=== PATIENT | female | born 1950 | race Caucasian/White ===

== ENCOUNTER → 2016-09-09 | Outpatient (CLI) | payer OTHER, MEDICARE | LOC: FIMAGING 08:39 | PROVIDERS: ATTEND Anesthesiology Pain Medicine | DX: S73.192A Other sprain of left hip, initial encounter (principal); M48.06 Spinal stenosis, lumbar region; M16.0 Bilateral primary osteoarthritis of hip; M25.451 Effusion, right hip; M76.01 Gluteal tendinitis, right hip; M76.891 Other specified enthesopathies of right lower limb, excluding foot; M46.96 Unspecified inflammatory spondylopathy, lumbar region; M51.36 Other intervertebral disc degeneration, lumbar region; M51.86 Other intervertebral disc disorders, lumbar region ==

== ENCOUNTER → 2016-10-06 | Outpatient (CLI) | payer OTHER, MEDICARE | LOC: FIMAGING 16:07 | PROVIDERS: ATTEND Neurological Surgery | DX: S33.130A Subluxation of L3/L4 lumbar vertebra, initial encounter (principal); S33.140A Subluxation of L4/L5 lumbar vertebra, initial encounter; M51.36 Other intervertebral disc degeneration, lumbar region ==

== ENCOUNTER → 2016-10-28 | Outpatient (CLI) | payer OTHER, MEDICARE | LOC: FIMAGING 08:30 | DX: Z12.31 Encounter for screening mammogram for malignant neoplasm of breast (principal) | CPT/HCPCS: G0202 ==

== ENCOUNTER 2016-12-09 11:30 | Inpatient (IN) | payer OTHER, MEDICARE ==
[2017-02-17] MEDS ORDERED: TRANEXAMIC ACID 3,000 MG in NS 50 ML IRR ONE (06:00)
[2017-02-17] MEDS ORDERED: ROPIVACAINE 0.2% 80 MG, EPINEPHrine 0.2 MG, KETOROLAC TROMETHAMINE 30 MG in BAG 0 ML IU ONE (06:00)
[2017-02-17] MEDS ORDERED: TRANEXAMIC ACID 3,000 MG/50 ML BAG IRR ONE (07:50)
[2017-02-17] MEDS ORDERED: ACETAMINOPHEN 325 MG TAB PO ONE (10:31)
[2017-02-17] MEDS ORDERED: FAMOTIDINE 20 MG TAB PO ONE (10:31)
[2017-02-17] MEDS ORDERED: ceFAZolin 2 GM/DEXTROSE 100 ML IV ONE (10:31)
[2017-02-17] MEDS ORDERED: DEXAMETHASONE 4 MG/ML VIAL IVP ONE (10:31)
[2017-02-17] MEDS ORDERED: LR 1,000 ML IV ONE (10:33)
[2017-02-17] MEDS ORDERED: LIDOCAINE 1% 2 ML INJ ID PRN (10:33)
[2017-02-17] MEDS ORDERED: LIDOCAINE 1% 2 ML INJ ONE (10:50)
[2017-02-17] MEDS ORDERED: ACETAMINOPHEN 325 MG TAB ONE (10:50)
[2017-02-17] MEDS ORDERED: DEXAMETHASONE 4 MG/ML VIAL ONE (10:50)
[2017-02-17] MEDS ORDERED: CEFAZOLIN 2 GM/DEXTROSE/100 ML BAG IV ONE (10:50)
[2017-02-17] MEDS ORDERED: FAMOTIDINE 20 MG TAB ONE (10:50)
--- NOTE | 2017-02-17 11:40 | PDHPUP ---
History & Physical Update H&P update statement: This history and physical update is based on an assessment of the patient which was completed after admission or registration (within 24 hours), but prior to the surgery/procedure. H&P update: H&P reviewed & patient examined, no change in patient's condition since H&P completed
[2017-02-17] MEDS ORDERED: MIDAZOLAM 2 MG/2 ML VIAL IVP ONE (11:49)
--- NOTE | 2017-02-17 11:49 | PDANEPAE ---
ANE History of Present Illness 66 yo F w OA here for R BENJAMIN ANE Past Medical History - Cardiovascular History Hx Hypertension: No Hx Arrhythmias: Yes Hx Chest Pain: No Hx Coronary Artery / Peripheral Vascular Disease: No Hx CHF / Valvular Disease: No Hx Palpitations: No Cardiovascular History Comment: IRREG HEARTBEAT- OCCAS - WORK UP WITH DR LEDEZMA [facility]. 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 dr ledezma started her on metoprolol last week - Pulmonary History Hx COPD: No Hx Asthma/Reactive Airway Disease: No Hx Recent Upper Respiratory Infection: No Hx Oxygen in Use at Home: No Hx Sleep Apnea: Yes Sleep Apnea Screening Result - Last Documented: Positive Pulmonary History Comment: DENIES SOB W STAIRS - Neurologic History Hx Cerebrovascular Accident: No Hx Seizures: No Hx Dementia: No Neurologic History Comment: NEUROPATHY MARGARET FEET. LOW BACK STENOSIS. DDD - Endocrine History Hx Diabetes: No - Renal History Hx Renal Disorders: No - Liver History Hx Hepatic Disorders: No - Neurological & Psychiatric Hx Hx Neurological and Psychiatric Disorders: Yes Neurological / Psychiatric History Comment: ANXIETY, INSOMNIA - Cancer History Hx Cancer: No - Congenital Disorder History Hx Congenital Disorders: No - GI History Hx Gastrointestinal Disorders: Yes Gastrointestinal History Comment: GLUTEN FREE DIET. HEMORRHOID - Other Health History Other Health History: OSTEOPENIA. RHUMATOID ARTHRITIS X 20. OA. DRY EYES - Chronic Pain History Chronic Pain: Yes (BACK, R HIP, GROIN) - Surgical History Prior Surgeries: R TKA. SCOPE R KNEE '11. L SHOULDER '13. WISDOM TEETH. D AND C X2. UTERINE ABLATION ANE Review of Systems - Exercise capacity METS (RN): 4 METS - Systems Muscolosketal: Reports: joint pain (h/o rheumatoid arthritis), joint swelling ANE Patient History - Allergies Allergies/Adverse Reactions: adalimumab [From Humira] Allergy (Severe, Verified 02/15/17 12:27) Rash eszopiclone [From Lunesta] Allergy (Severe, Verified 02/15/17 12:27) Rash hydroxyzine Allergy (Severe, Verified 02/15/17 12:27) Rash leflunomide [From Arava] Allergy (Severe, Verified 02/15/17 12:27) Diarrhea levofloxacin [From Levaquin] Allergy (Severe, Verified 02/15/17 12:27) Rash nabumetone [From Relafen] Allergy (Severe, Verified 02/15/17 12:27) Rash ramelteon [From Rozerem] Allergy (Severe, Verified 02/15/17 12:27) Rash zolpidem tartrate [From Ambien] Allergy (Severe, Verified 02/15/17 12:27) Rash gluten Allergy (Verified 02/15/17 12:27) - Home Medications Home medications: home medication list seen and reviewed Home Medications: Herbals/Supplements -Info Only 1 ea PO DAILY 12/11/13 [Last Taken 02/03/17] LORazepam [Ativan (*)] 0.5 mg PO HS PRN 12/11/13 [Last Taken 02/16/17 23:30] Tretinoin [RETIN-A] 1 tye TP HS 12/11/13 [Last Taken 02/16/17 23:30] cycloSPORINE 0.05% [Restasis Opht Drops(*)] 1 drop EACHEYE BID 12/11/13 [Last Taken 02/17/17 07:00] Cholecalciferol Vit D3 [Vitamin D3 2000 units tab (OTC)] 6,000 units PO DAILY [Last Taken 02/03/17] Estradiol [Estrace Vaginal (*)] 1 tye VG Q3D 12/07/16 [Last Taken 02/03/17] traMADol [Ultram 50 mg (*)] 25 mg PO DAILY PRN 12/07/16 [Last Taken 02/03/17] Metoprolol Succinate 12.5 mg PO DAILY 02/15/17 [Last Taken 02/17/17 07:00] - NPO status NPO Since - Liquids (Date): 02/17/17 NPO Since - Liquids (Time): 07:00 NPO Since - Solids (Date): 02/16/17 NPO Since - Solids (Time): 18:00 - Anes Hx Anes Hx: no prior problems - Smoking Hx Smoking Status: Never smoked - Alcohol Use Alcohol Use: Rarely - Family Anes Hx Family Anes Hx: none Family Hx Anesthesia Complications: NONE ANE Labs/Vital Signs - Vital Signs Blood Pressure: 122/69 Heart Rate: 61 Respiratory Rate: 16 O2 Sat (%): 97 Height: 181.61 cm Weight: 63.503 kg ANE Physical Exam - Airway Neck exam: FROM Mallampati Score: Class 1 Mouth exam: normal dental/mouth exam - Pulmonary Pulmonary: no respiratory distress - Cardiovascular Cardiovascular: regular rate and rhythym - ASA Status ASA Status: III ANE Anesthesia Plan Anesthesia Plan: GA with mask, spinal Total IV Anesthesia: Yes
[2017-02-17] MEDS ORDERED: PROPOFOL/EMULSION 500 MG/50 ML BOTTLE IV ONE (12:25)
[2017-02-17] MEDS ORDERED: ONDANSETRON 4 MG/2 ML VIAL IVP PRN ×2 (13:26→13:57)
[2017-02-17] MEDS ORDERED: HYDROmorphONE/DILAUDID 1 MG/ML SYR IVP PRN (13:26)
[2017-02-17] MEDS ORDERED: NALOXONE HCL 0.4 MG/ML INJ IVP PRN (13:26)
[2017-02-17] MEDS ORDERED: PROPOFOL 200 MG/20 ML VIAL ONE (13:34)
[2017-02-17] MEDS ORDERED: LORazepam 0.5 MG TAB PO PRN (13:56)
--- NOTE | 2017-02-17 13:56 | POSTOPPROG ---
Post Op Note Date of Operation: 02/17/17 Surgeon: [employer] [employer] [facility] Consultant: ethan aburto Anesthesiologist: soco Anesthesia: IV Sedation, Spinal Pre-op Diagnosis: R hip OA Post-op Diagnosis: R hip OA Indication: failed conservative therapies Procedure: R BENJAMIN Inf/Abcess present in the surg proc area at time of surgery?: No EBL: 50-100
[2017-02-17] MEDS ORDERED: PROMETHAZINE HCL 25 MG/ML INJ IVP PRN (13:57)
[2017-02-17] MEDS ORDERED: MAGNESIUM HYDROXIDE 30 ML UDCUP PO PRN (13:57)
[2017-02-17] MEDS ORDERED: DIPHENOXYLATE/ATROPINE LOMOTIL 1 TAB PO PRN (13:57)
[2017-02-17] MEDS ORDERED: diphenhydrAMINE 25 MG CAP PO PRN (13:57)
[2017-02-17] MEDS ORDERED: PROMETHAZINE HCL 25 MG SUPPR PR PRN (13:57)
[2017-02-17] MEDS ORDERED: POLYETHYLENE GLYCOL 3350 17 GM PKT PO PRN (13:57)
[2017-02-17] MEDS ORDERED: CYCLOBENZAPRINE 10 MG TAB PO PRN (13:57)
[2017-02-17] MEDS ORDERED: METOCLOPRAMIDE 10 MG/2 ML VIAL IVP PRN (13:57)
[2017-02-17] MEDS ORDERED: BISACODYL 10 MG SUPP PR PRN (13:57)
[2017-02-17] MEDS ORDERED: LACTULOSE 20 GM/30 ML UDCUP PO PRN (13:57)
[2017-02-17] MEDS ORDERED: ONDANSETRON DISINTEGRATING 4 MG TAB PO PRN (13:57)
[2017-02-17] MEDS ORDERED: TEMAZEPAM 15 MG CAP PO PRN (13:57)
[2017-02-17] MEDS ORDERED: LR 1,000 ML IV SCH (14:00)
[2017-02-17] MEDS ORDERED: ONDANSETRON 4 MG/2 ML VIAL ONE (14:21)
--- NOTE | 2017-02-17 16:36 | POSTANESTH ---
Post Anesthetic Evaluation Cardiovascular Status: Normal, Stable, Similar to Pre-Op Cond Respiratory Status: Normal, Stable, Similar to Pre-op Cond. Level of Consciousness/Mental Status: Can Participate in Eval, Alert and Oriented Pain Control: Adequate, Prn Tx Ordered Nausea/Vomiting Control: Adequate, Prn Tx Ordered Complications Possibly Related to Anesthesia: None Noted
[2017-02-17] MEDS: ACETAMINOPHEN 325 MG TAB PO SCH ×2 (17:16→23:33)
[2017-02-17] MEDS: ASPIRIN 325 MG TAB PO SCH (21:02)
[2017-02-17] MEDS: SENNOSIDES/DOCUSATE SODIUM TAB PO SCH (21:02)
[2017-02-17] MEDS: ceFAZolin 2 GM/DEXTROSE 100 ML IV SCH (21:03)
[2017-02-17] MEDS: oxyCODONE IR 5 MG TAB PO PRN ×2 (21:03→22:20)
[2017-02-17] MEDS: FAMOTIDINE 20 MG TAB PO SCH (21:09)
[2017-02-17] MEDS: CYCLOSPORINE 0.05% 1 EACH BOX EACHEYE SCH (21:09)
[2017-02-18] MEDS: ceFAZolin 2 GM/DEXTROSE 100 ML IV SCH (05:03)
[2017-02-18] MEDS: ACETAMINOPHEN 325 MG TAB PO SCH ×2 (05:04→13:56)
[2017-02-18 05:19] LABS: HEMATOCRIT 29.3 % (38.0-47.0); HEMOGLOBIN 10.1 g/dL (12.6-16.3)
[2017-02-18 05:25] VITALS: TEMP 98.4
[2017-02-18 07:20] VITALS: BP 104/61; PULSE 58; RESP 18; O2SAT 95
--- NOTE | 2017-02-18 08:25 | SOAPPROG ---
SOAP Progress Note Assessment/Plan: Assessment: Patient is doing well POD 1 s/p R BENJAMIN Pain management: pain is well controlled on oral pain meds. VTE ppx: recommend aspirin daily for 3 weeks, cont MABEL and SCDs Anemia: level is expected initially postop. Asymptomatic. Continue to monitor D/c planning: d/c to home today pending release from PT Plan: 02/18/17 08:24 Objective: Vital Signs Temp Pulse Resp BP Pulse Ox 36.9 C 58 L 18 104/61 95 02/18/17 07:17 02/18/17 07:17 02/18/17 07:17 02/18/17 07:17 02/18/17 07:17 Laboratory Results 02/18/17 04:51 02/17/17 02/18/17 02/19/17 05:59 05:59 05:59 Intake Total 2260 Output Total 2550 350 Balance -290 -350 ICD10 Worksheet Patient Problems: Problems Problem Status Onset Osteoarthritis of knee Acute
[2017-02-18] MEDS: SENNOSIDES/DOCUSATE SODIUM TAB PO SCH (09:01)
[2017-02-18] MEDS: ASPIRIN 325 MG TAB PO SCH (09:01)
[2017-02-18] MEDS: FAMOTIDINE 20 MG TAB PO SCH (09:01)
--- NOTE | 2017-02-18 11:15 | GOP ---
[f rep st] OPERATIVE REPORT DATE OF OPERATION: 02/17/2017 SURGEON: Jimmy Callahan MD AWNING FINISHER: JOSH Levy. ANESTHESIA: Spinal. PREOPERATIVE DIAGNOSIS: Right hip osteoarthritis. POSTOPERATIVE DIAGNOSIS: Right hip osteoarthritis. PROCEDURE PERFORMED: Right total hip arthroplasty. FINDINGS: ESTIMATED BLOOD LOSS: 200 mL IMPLANTS: Accolade II, size 6 at 127. Acetabular component is a 56 mm Tritanium. The liner is a Trident X3, 36 mm. The head is a Biolox Delta 36 mm -2.5. INDICATIONS: The patient has progressively worsening arthritis of the hip which has failed medical management. The patient understands the treatment options including continued non-operative care and has selected surgical intervention. The patient has decided to undergo total hip arthroplasty via the direct anterior approach, understanding the risks of the procedure including, but not limited to, neurovascular injury, infection, persistent pain, component wear and loosening, deep venous thrombosis, pulmonary embolism, limb length inequality, hip instability (including dislocation), and intra-operative fractures. DESCRIPTION OF PROCEDURE: After proper identification of the patient including verification and marking the surgical site, the patient was brought to the operating room and placed in the supine position. All bony prominences were well padded. Anesthesia was induced without complication and intravenous prophylactic antibiotics were administered prior to skin incision. The operative leg was placed in the Trumpf Arch table extension and the well leg in a Yellowfin leg kim. The patient was prepped and draped in the usual sterile fashion. The C-arm was draped for intra-operative fluoroscopy to check acetabular position, femoral component position including leg length and femoral offset. Attention was then drawn to surgical exposure of the hip. An incision was made with a #10 Bard Adrián blade starting 3 cm lateral and 3 cm distal to the anterior superior iliac spine measuring 8-10 cm and coursing distally toward the greater trochanter. The skin and subcutaneous tissues were divided sharply down to the fascia tom. The fascia tom was incised in line with the skin incision exposing the underlying tensor fascia tom muscle. The muscle was bluntly elevated from the fascia and the first extracapsular Cobra retractor was placed laterally at the junction of the superior femoral neck and greater trochanter. The lateral femoral circumflex vessels were identified, cauterized, and divided with the Aquamantys bipolar cautery. The deep investing fascia of the TFL was divided to allow proper mobilization of the muscle preventing damage during the retraction. The reflected head of the rectus femoris muscle was elevated off the anterior hip capsule and a medial Cobra retractor was placed just proximal to the lesser trochanter. The anterior capsulotomy was made sharply from the superolateral acetabulum to the saddle junction of the superior femoral neck and greater trochanter, then coursing inferomedial towards the lesser trochanter. The retractors were then placed in the intracapsular position for femoral neck osteotomy. Corresponding to pre-operative templating, the osteotomy was made with the oscillating saw carefully protecting the greater trochanter and soft tissues. The femoral head was removed from the acetabulum with a corkscrew and confirmed to be severely arthritic with exposed bone, deformity and osteophytes. Similar findings were confirmed in the acetabulum. The Arch table extension was then placed in 40 degrees external rotation. Attention was then drawn to the acetabular preparation. After placement of the anterior and posterior Cobra retractors outside the labrum and intracapsular, the circumferential labrum was removed sharply. The foveal contents were then removed and hemostasis obtained with cautery. The first reamer selected was sized using the removed femoral head. Reaming began with medialization and then commenced in 2 mm increments at 45 degrees of abduction and 15 degrees of anteversion using fluoroscopic navigation. Reaming ceased 1 mm less than the definitive acetabular component and corresponded to the pre-operative templating. The final acetabular component was inserted using fluoroscopy to achieve proper orientation yielding excellent purchase and stability in the acetabulum. The final acetabular liner was then placed and its seating confirmed. Attention was then turned to the femur. The Arch table extension was placed in extension and adduction, delivering the osteotomized femoral neck into the wound. A 2-pronged femoral elevator was placed at the calcar and another at the tip of the greater trochanter. The posterolateral capsule was released with cautery allowing mobilization of the femur lateral and anterior for preparation. The external rotators were visualized and preserved. A curette and rongeur were used to open the starting point for broaching. Serial broaching started with the #0 broach and ended with the broach that exhibited excellent fit in the proximal femur. A change in pitch during mallet strikes was accompanied by the inability to advance the broach any further. The trial reduction was performed and fluoroscopic navigation was utilized to check limb length. Adjustments were made to equalize limb length accordingly. After the final trials were accepted they were removed and the wound was copiously lavaged. The femoral component was seated to the same depth as the final broach and the femoral head was impacted onto the clean trunion. The hip was then reduced for the final time and once more fluoroscopy was used to check that limb length equality was achieved. The wound was irrigated and closed in layers, the fascia tom with 2-0 Quill, the subcutaneous tissue with 2-0 Quill, and the skin with Dermabond. Sterile dressings were applied. Final sharps and sponge counts were accurate. The patient was then transferred to a hospital bed and brought to the recovery room in stable condition. /[id number]/MODL MTDD
[2017-02-18] MEDS: oxyCODONE IR 5 MG TAB PO PRN (13:56)
[2017-02-18] MEDS: CYCLOSPORINE 0.05% 1 EACH BOX EACHEYE SCH (14:34)
--- NOTE | 2017-02-22 03:37 | GDS ---
[f rep st] DISCHARGE SUMMARY ADMISSION DIAGNOSIS: Right hip osteoarthritis. DISCHARGE DIAGNOSIS: Right hip osteoarthritis. PROCEDURE: Right total hip arthroplasty. VTE PROPHYLAXIS: Full-strength aspirin x21 days. BRIEF DESCRIPTION OF HOSPITAL STAY: Patient was admitted for an elective joint arthroplasty. The p atient tolerated the procedure well and has passed physical therapy. The patient was given appropri ate antibiotic prophylaxis and venous thromboembolism prophylaxis. The patient's pain was well cont rolled on oral pain medication, patient was holding down food, and had urinated. Decision was made to discharge the patient. The patient was given post-operative prescriptions pre-operatively. PLAN: Please follow up with Dr. Callahan as scheduled in 3 weeks. /[id number]/MODL
== END 2017-02-18 14:07 | disposition home or self-care (01) | DRG 470 ==
LOC: F3E 02-17 10:05 → F3N 02-17 14:55
PROVIDERS: ADMIT Orthopaedic Surgery; ATTEND Orthopaedic Surgery
PROC: 0SR904A Replacement of Right Hip Joint with Ceramic on Polyethylene Synthetic Substitute, Uncemented, Open Approach (ICD-10-PCS; principal; 2017-02-17 12:15)
DX: M16.11 Unilateral primary osteoarthritis, right hip (principal); I49.3 Ventricular premature depolarization; M51.87 Other intervertebral disc disorders, lumbosacral region; G60.9 Hereditary and idiopathic neuropathy, unspecified; M06.9 Rheumatoid arthritis, unspecified; I42.9 Cardiomyopathy, unspecified
CPT/HCPCS: 97116-GP; 97161-GP; 97165-GO; 97530-GP; G8978-GP-CI; G8979-GP-CI; G8980-GP-CI; G8987-GO-CI; G8988-GO-CI; G8989-GO-CI; J0171; J0690; J1100; J1885; J2250; J2405; J2704; J2795

== ENCOUNTER 2017-02-11 13:06 | Day surgery (SDC) | payer OTHER, MEDICARE ==
[2017-02-11] MEDS ORDERED: ASPIRIN EC 325 MG TAB PO ONE ×2 (13:13→13:36)
[2017-02-11] MEDS ORDERED: diphenhydrAMINE 25 MG CAP PO ONE ×2 (13:13→13:36)
[2017-02-11] MEDS ORDERED: FAMOTIDINE 20 MG TAB PO ONE (13:13)
[2017-02-11] MEDS ORDERED: NS 1,000 ML IV ONE (13:13)
[2017-02-11] MEDS ORDERED: DIAZEPAM 5 MG TAB PO ONE (13:13)
[2017-02-11] MEDS ORDERED: DIAZEPAM 5 MG TAB ONE (13:36)
[2017-02-11] MEDS ORDERED: FAMOTIDINE 20 MG TAB ONE (13:36)
--- NOTE | 2017-02-11 13:51 | CPEKG ---
Heart Rate: 100 RR Interval: 600 P-R Interval: 180 QRSD Interval: 74 QT Interval: 384 QTC Interval: 496 P Sigourney: 81 QRS Sigourney: 83 T Wave Sigourney: 35 EKG Severity - ABNORMAL ECG - EKG Impression: SINUS TACHYCARDIA EKG Impression: VENTRICULAR BIGEMINY EKG Impression: PROBABLE LEFT ATRIAL ABNORMALITY EKG Impression: BORDERLINE RIGHT AXIS DEVIATION EKG Impression: CONSIDER ANTEROSEPTAL INFARCT Electronically Signed By: Satish Cardenas 11-Feb-2017 14:14:51
[2017-02-11 14:02] LABS: ADD DIFF? NO; ADD MORPH? NO; ADD SCAN? NO; ATYPICAL LYMPHOCYTE FLAG 70 (0-99); FRAGMENT RBC FLAG 0 (0-99); HEMATOCRIT 37.9 % (38.0-47.0); HEMOGLOBIN 13.1 g/dL (12.6-16.3); LEFT SHIFT FLG 0 (0-99); LIPEMIA HEMOLYSIS FLAG 90 (0-99); MEAN CELL HEMOGLOBIN 30.4 pg (27.9-34.1); MEAN CELL HEMOGLOBIN CONCENTR. 34.6 g/dL (32.4-36.7); MEAN CELL VOLUME 87.9 fL (81.5-99.8); PLATELET CLUMPS FLAG 10 (0-99); PLATELET COUNT 173 10^3/uL (150-400); RED BLOOD CELL COUNT 4.31 10^6/uL (4.18-5.33); RED CELL DISTRIBUTION WIDTH 12.8 % (11.5-15.2)
[2017-02-11 14:16] LABS: INR 1.11 (0.83-1.16); PROTIME(PATIENT) 14.2 SEC (12.0-15.0)
[2017-02-11 14:18] LABS: ANION GAP 10 mEq/L (8-16); CALCIUM 9.6 mg/dL (8.5-10.4); CARBON DIOXIDE 20 mEq/l (22-31); CHLORIDE 106 mEq/L (97-110); CHOLESTEROL 202 mg/dL (140-220); CHOLESTEROL/HDL RATIO 2.56 RATIO (1.00-4.44); CREATININE 0.8 mg/dL (0.6-1.0); GLOMERULAR FILTRATION RATE > 60; GLUCOSE 85 mg/dL (70-100); HIGH DENSITY LIPOPROTEIN 79 mg/dL (40-85); LDL/HDL RATIO 1.41 RATIO (1.00-3.22); LOW DENSITY LIPOPROTEIN 111 mg/dL (80-100); MAGNESIUM 1.9 mg/dL (1.6-2.3); NON-HIGH DENSITY LIPOPROTEIN 123 mg/dL (90-129); POTASSIUM 4.3 mEq/L (3.5-5.2); SODIUM 136 mEq/L (134-144); TRIGLYCERIDE 63 mg/dL (35-135); VERY LOW DENSITY LIPOPROTEINS 12 mg/dL (8-25)
[2017-02-11] MEDS ORDERED: LIDOCAINE 1% 300 MG/30 ML SDV ONE (14:46)
[2017-02-11] MEDS ORDERED: HEPARIN 10,000 UNIT/10 ML MDV ONE (14:46)
[2017-02-11] MEDS ORDERED: VERAPAMIL 5 MG/2 ML VIAL ONE (14:47)
[2017-02-11] MEDS ORDERED: IOPAMIDOL (ISOVUE-370) 150 ML BTL IV ONE (14:47)
[2017-02-11] MEDS ORDERED: MIDAZOLAM 2 MG/2 ML VIAL ONE (14:57)
[2017-02-11] MEDS ORDERED: fentaNYL 100 MCG/2 ML INJ ONE (14:57)
--- NOTE | 2017-02-11 16:20 | PDDXCAT ---
Diagnostic Cath Note - . Date: 02/11/17 Monkey Keeper: Yemi Indication: other (Frequent PVCs including short bursts of nonsustained VT, abnormal nuclear stress test, progressive exercise intolerance, and preoperative cardiac risk assessment for a planned hip replacement.) - Procedure Access: right wrist Procedure: left heart catheterization, coronary angiography, left ventriculogram - Materials Left Heart Cath size: 4F Left Heart Cath materials: standard multipack (JL4, JR4, pigtail) - Findings-Left Heart Catheterization LM: Angiographically normal. LAD: Angiographically normal. LCX: Angiographically normal. RCA: Angiographically normal. EDP: 11 mmHg LVEF: 45% Wall motion: Mild global hypokinesis. Complications: None Estimated blood loss: <50ml Closure method: TR Band Assessment: 1) Nonischemic cardiomyopathy with mildly reduced LV systolic function. 2) Angiographically normal coronary arteries. Plan: [facility] months ago the patient had a Holter monitor at [facility] that was reported to show PVCs and short bursts of nonsustained ventricular tachycardia. A 4% burden of PVCs was mentioned which would equate to approximately 4000 PVCs per day. Today, she was in ventricular bigeminy with occasional bursts of nonsustained VT during the entire time I was talking to her about the catheterization procedure. If she is having sustained episodes of bigeminy she could potentially be having as much/or more than 20-30,000 PVCs per day. This could also explain her mildly reduced left ventricular systolic function and worsening exercise capacity. I will speak with her usual child care worker, Dr. Roque Pena, about potentially placing her on low-dose loree therapy to suppress these. Patient Problems: Problems Problem Status Onset Osteoarthritis of knee Acute
== END 2017-02-11 19:15 | disposition home or self-care (01) ==
LOC: FCATH 13:06
PROVIDERS: ATTEND Internal Medicine Interventional Cardiology
PROC: B2151ZZ Fluoroscopy of Left Heart using Low Osmolar Contrast (ICD-10-PCS; principal; 2017-02-11)
PROC: 4A023N7 Measurement of Cardiac Sampling and Pressure, Left Heart, Percutaneous Approach (ICD-10-PCS; principal; 2017-02-11)
PROC: B2111ZZ Fluoroscopy of Multiple Coronary Arteries using Low Osmolar Contrast (ICD-10-PCS; principal; 2017-02-11)
DX: Z13.6 Encounter for screening for cardiovascular disorders (principal); I47.2 Ventricular tachycardia; R94.31 Abnormal electrocardiogram [ECG] [EKG]
CPT/HCPCS: 93005; 93458; C1769; J1644; J2250; J3010; Q9967

== ENCOUNTER 2017-07-28 06:01 | Inpatient (IN) | payer OTHER, MEDICARE ==
[~2017-07-28 06:01] MED LIST: ACETAMINOPHEN 500 MG TAB PO ONE; GABAPENTIN 300 MG CAP PO ONE; LIDOCAINE 1% 2 ML INJ ID PRN; LR 1,000 ML IV ONE; ceFAZolin 2 GM/SWFI 2 GM/20 ML SYR IVP ONE
[2017-07-28] MEDS ORDERED: CHLORHEXIDINE GLUC HIBICLENS 118 ML BTL TP ONE (06:37)
[2017-07-28] MEDS ORDERED: BUPIVACAINE 0.25% 30 ML SDV ONE (06:37)
[2017-07-28] MEDS ORDERED: THROMBIN (BOVINE) 20,000 UNIT VIAL TP ONE (06:37)
[2017-07-28] MEDS ORDERED: BACITRACIN 50,000 UNITS/10 ML SYR IRR ONE ×2 (06:38→10:40)
[2017-07-28] MEDS ORDERED: MIDAZOLAM 2 MG/2 ML VIAL ONE (07:20)
[2017-07-28] MEDS ORDERED: diphenhydrAMINE 25 MG CAP PO PRN (07:24)
[2017-07-28] MEDS ORDERED: POLYETHYLENE GLYCOL 3350 17 GM PKT PO PRN (07:24)
[2017-07-28] MEDS ORDERED: fentaNYL 100 MCG/2 ML INJ ONE ×2 (07:24→14:14)
[2017-07-28] MEDS ORDERED: HYDROCODONE/APAP 5/325 TAB PO PRN (07:24)
[2017-07-28] MEDS ORDERED: PROPOFOL/EMULSION 500 MG/50 ML BOTTLE IV ONE ×2 (07:24→08:02)
[2017-07-28] MEDS ORDERED: HYDROmorphONE/DILAUDID 1 MG/ML INJ IVP PRN (07:24)
[2017-07-28] MEDS ORDERED: LACTULOSE 20 GM/30 ML UDCUP PO PRN (07:24)
[2017-07-28] MEDS ORDERED: NALOXONE HCL 0.4 MG/ML INJ IVP PRN (07:24)
[2017-07-28] MEDS ORDERED: ONDANSETRON DISINTEGRATING 4 MG TAB PO PRN (07:24)
[2017-07-28] MEDS ORDERED: ONDANSETRON 4 MG/2 ML VIAL IVP PRN ×2 (07:24→14:22)
[2017-07-28] MEDS ORDERED: BISACODYL 10 MG SUPP PR PRN (07:24)
[2017-07-28] MEDS ORDERED: MAGNESIUM HYDROXIDE 30 ML UDCUP PO PRN (07:24)
[2017-07-28] MEDS ORDERED: HYDROmorphONE/DILAUDID 6 MG/30 ML PCA IV PRN (07:24)
[2017-07-28] MEDS ORDERED: ALBUMIN 5% 250 ML BOTTLE IV ONE (07:25)
[2017-07-28] MEDS ORDERED: DEXMEDETOMIDINE/NS 4MCG/ML 50 ML BTL IV ONE (07:26)
[2017-07-28] MEDS ORDERED: NS W/ 20 KCl/L 1,000 ML IV SCH (07:30)
[2017-07-28] MEDS ORDERED: [UNRECOGNIZED DRUG - OTHER] IV ONE (07:30)
[2017-07-28] MEDS ORDERED: TRANEXAMIC ACID IV ONE (07:30)
[2017-07-28] MEDS ORDERED: TOCILIZUMAB IV SCH (07:30)
[2017-07-28] MEDS ORDERED: SODIUM CHLORIDE IV ONE (07:30)
[2017-07-28] MEDS: NS IV ONE ×2 (07:32→08:42)
[2017-07-28] MEDS: TRANEXAMIC ACID IV ONE ×2 (07:32→08:42)
--- NOTE | 2017-07-28 09:26 | PDANEPAE ---
ANE Past Medical History - Cardiovascular History Hx Hypertension: No Hx Arrhythmias: Yes Hx Chest Pain: No Hx Coronary Artery / Peripheral Vascular Disease: No Hx CHF / Valvular Disease: No Hx Palpitations: No Cardiovascular History Comment: IRREG HEARTBEAT - Pulmonary History Hx COPD: No Hx Asthma/Reactive Airway Disease: No Hx Recent Upper Respiratory Infection: No Hx Oxygen in Use at Home: No Hx Sleep Apnea: Yes Sleep Apnea Screening Result - Last Documented: Positive Pulmonary History Comment: DENIES SOB W STAIRS - Neurologic History Hx Cerebrovascular Accident: No Hx Seizures: No Hx Dementia: No Neurologic History Comment: NEUROPATHY MARGARET FEET - Endocrine History Hx Diabetes: No - Renal History Hx Renal Disorders: No - Liver History Hx Hepatic Disorders: No - Neurological & Psychiatric Hx Hx Neurological and Psychiatric Disorders: Yes Neurological / Psychiatric History Comment: Neuropathy R/T RA,ANXIETY, INSOMNIA - Cancer History Hx Cancer: No - Congenital Disorder History Hx Congenital Disorders: No - GI History Hx Gastrointestinal Disorders: Yes Gastrointestinal History Comment: GLUTEN FREE DIET. HEMORRHOID - Other Health History Other Health History: OSTEOPENIA. RHUMATOID ARTHRITIS X 20. OA. LOW BACK STENOSIS. DDD. Sjogrens. DRY EYES - Chronic Pain History Chronic Pain: Yes (LEGS,KNEES) - Surgical History Prior Surgeries: R TKA. SCOPE R KNEE '11. L SHOULDER '13. WISDOM TEETH. D AND C X2. UTERINE ABLATION. total hip 02/11 ANE Review of Systems Review of Systems: - Exercise capacity METS (RN): 4 METS ANE Patient History - Allergies Allergies/Adverse Reactions: adalimumab [From Humira] Allergy (Severe, Verified 02/15/17 12:27) Rash eszopiclone [From Lunesta] Allergy (Severe, Verified 02/15/17 12:27) Rash hydroxyzine Allergy (Severe, Verified 02/15/17 12:27) Rash leflunomide [From Arava] Allergy (Severe, Verified 02/15/17 12:27) Diarrhea levofloxacin [From Levaquin] Allergy (Severe, Verified 02/15/17 12:27) Rash nabumetone [From Relafen] Allergy (Severe, Verified 02/15/17 12:27) Rash ramelteon [From Rozerem] Allergy (Severe, Verified 02/15/17 12:27) Rash trazodone Allergy (Severe, Verified 07/12/17 10:41) Other-Enter Comments zolpidem tartrate [From Ambien] Allergy (Severe, Verified 02/15/17 12:27) Rash desmopressin Allergy (Intermediate, Verified 07/12/17 10:41) Edema of Extremities gluten Allergy (Verified 02/15/17 12:27) - Home Medications Home Medications: Herbals/Supplements -Info Only 1 ea PO DAILY 12/11/13 [Last Taken 07/20/17] Tretinoin [RETIN-A] 1 tye TP HS 12/11/13 [Last Taken 07/20/17] Cholecalciferol Vit D3 [Vitamin D3 2000 units tab (OTC)] 6,000 units PO DAILY [Last Taken 07/20/17] Estradiol [Estrace Vaginal (*)] 1 tye VG Q3D 12/07/16 [Last Taken 07/18/17] Cyclosporine (A) 1% Oil 1 drop EACHEYE HS 07/06/17 [Last Taken 07/27/17 21:00] Nebivolol HCl [Bystolic 5 mg (*)] 2.5 mg PO DAILY 07/06/17 [Last Taken 07/28/17 06:25] Tocilizumab [Actemra] 280 mg IV Q30D 07/06/17 [Last Taken 07/02/17] cycloSPORINE 0.05% [Restasis Opht Drops(*)] 1 drop EACHEYE DAILY 07/06/17 [Last Taken 07/27/17] - NPO status NPO Since - Liquids (Date): 07/27/17 NPO Since - Liquids (Time): 21:00 NPO Since - Solids (Date): 07/27/17 NPO Since - Solids (Time): 20:00 - Smoking Hx Smoking Status: Never smoked - Family Anes Hx Family Hx Anesthesia Complications: NONE ANE Labs/Vital Signs - Vital Signs Height: 180.34 cm Weight: 63.503 kg ANE Physical Exam - Airway Neck exam: FROM Mallampati Score: Class 1 Mouth exam: normal dental/mouth exam - Pulmonary Pulmonary: no respiratory distress, no rales or rhonchi, clear to auscultation - Cardiovascular Cardiovascular: regular rate and rhythym, no murmur, rub, or gallop - ASA Status ASA Status: II ANE Anesthesia Plan Anesthesia Plan: general endotracheal anesthesia Lines/Monitors: arterial line, additional IV (Risk of blindness related to long prone position discussed with patient and )
[2017-07-28] MEDS ORDERED: PHENYLEPHRINE 10 MG/ML SDV ONE (09:32)
[2017-07-28] MEDS ORDERED: DEXAMETHASONE 4 MG/ML VIAL ONE (09:32)
[2017-07-28] MEDS ORDERED: ONDANSETRON 4 MG/2 ML VIAL ONE (09:32)
[2017-07-28] MEDS ORDERED: METOCLOPRAMIDE 10 MG/2 ML VIAL ONE (09:32)
[2017-07-28] MEDS ORDERED: ROCURONIUM 50 MG/5 ML VIAL ONE (09:32)
[2017-07-28] MEDS ORDERED: LIDOCAINE 2% 5 ML SDV ONE (09:32)
[2017-07-28] MEDS ORDERED: ceFAZolin 1 GM VIAL ONE (10:21)
[2017-07-28] MEDS ORDERED: SODIUM BICARBONATE 50 MEQ/50 ML SYR ONE (12:25)
[2017-07-28] MEDS ORDERED: CALCIUM CHLORIDE 1 GM/10 ML INJ ONE (12:26)
[2017-07-28] MEDS ORDERED: fentaNYL 100 MCG/2 ML INJ IVP PRN ×2 (14:15→14:17)
[2017-07-28] MEDS ORDERED: DIAZEPAM 10 MG/2 ML SYR IVP PRN (14:21)
[2017-07-28] MEDS ORDERED: PROMETHAZINE HCL 25 MG/ML INJ IVP PRN (14:22)
[2017-07-28] MEDS ORDERED: ALBUTEROL 3 ML DEYVIAL IH PRN (15:02)
--- NOTE | 2017-07-28 15:02 | POSTANESTH ---
Post Anesthetic Evaluation Cardiovascular Status: Normal, Stable Respiratory Status: Normal, Stable Level of Consciousness/Mental Status: Mildly Sleepy, Arousable Pain Control: Adequate, Prn Tx Ordered Nausea/Vomiting Control: Adequate, Prn Tx Ordered Complications Possibly Related to Anesthesia: None Noted
[2017-07-28] MEDS: ESTRADIOL 42.5 GM CRTUBE VG SCH (16:11)
[2017-07-28] MEDS: CHOLECALCIFEROL VIT D3 2,000 UNITS TAB/CAP PO SCH (16:11)
[2017-07-28] MEDS: SENNOSIDES/DOCUSATE SODIUM TAB PO SCH ×2 (16:13→20:14)
[2017-07-28] MEDS: FAMOTIDINE 20 MG TAB PO SCH ×2 (16:13→20:15)
[2017-07-28] MEDS: NEBIVOLOL HCL 5 MG TAB PO SCH (16:13)
[2017-07-28] MEDS: ACETAMINOPHEN 500 MG TAB PO SCH ×2 (16:23→21:24)
[2017-07-28] MEDS: oxyCODONE IR 5 MG TAB PO PRN ×2 (16:23→20:32)
[2017-07-28] MEDS: cycloSPORINE 0.05% 30 DROPERETTE/BOX EACHEYE SCH (16:24)
[2017-07-28] MEDS: GABAPENTIN 300 MG CAP PO SCH ×2 (16:24→21:25)
[2017-07-28] MEDS: ceFAZolin 2 GM/DEXTROSE 100 ML IV SCH (20:15)
[2017-07-28] MEDS: Tretinoin [Retin-A] 1 APP TP SCH (20:29)
[2017-07-28] MEDS: CYCLOSPORINE EACHEYE SCH (20:29)
[2017-07-28] MEDS: METHOCARBAMOL 750 MG TAB PO PRN (20:32)
--- NOTE | 2017-07-28 20:39 | GOP ---
[f rep st] OPERATIVE REPORT DATE OF OPERATION: 07/28/2017 SURGEON: Dinah Rolle MD NEUROSURGEON: Dinah Rolle MD. HAND COREMAKER: David Sevilla PA-C. PREOPERATIVE DIAGNOSIS: Degenerative scoliosis, bilateral lumbosacral radiculopathy, degenerative le ft tilt with large left facet synovial cyst L5-S1, spondylolisthesis L4-5, degenerative right-sided t ilt of L3 on L4, with severe right L3-4 foraminal stenosis. POSTOPERATIVE DIAGNOSIS: Degenerative scoliosis, bilateral lumbosacral radiculopathy, degenerative l eft tilt with large left facet synovial cyst L5-S1, spondylolisthesis L4-5, degenerative right-sided tilt of L3 on L4, with severe right L3-4 foraminal stenosis. PROCEDURE PERFORMED: Posterior lateral and intervertebral arthrodesis with decompression at L3-4, L4 -5, L5-S1 ([id number] and [id number] x2), posterior segmental instrumentation L3, L4, L5, S1, placement of biom echanical intervertebral device L3-4, L4-5, L5-S1, same incision bone graft harvest, microscope, spin al stereotaxis. FINDINGS: ESTIMATED BLOOD LOSS: 450 cc. INDICATIONS: The patient is a 66-year-old who had a spondylolisthesis at L4-5, which was likely the predominant component of her severe axial low back pain and radiating pain. Her MRI, over the time t hat I knew her, progressed and had enlargement of a left L5-S1 synovial cyst with severe left L5-S1 f oraminal stenosis. When I 1st met her, she had greater pain on the right than on the left and she be teresa to develop more left-sided pain as time went on. There was a degenerative leftward tilt of L5 on S1, and a rightward tilt of L3 on L4, and compression of the exiting L3 nerve root on the right at L 3-4. I suggested a 3 level lumbar fusion. The possibility of including only a single-level to L4-5 was entertained and entertained originally. However, I felt that given the MRI appearance, this was quite likely to lead to incomplete relief of her discomfort and even if it worked in the short run, s he would likely require surgery at L3-4 and L5-S1 in the future. The risk of adjacent segment diseas e and progressive difficulty in the upper lumbar spine was discussed as well as the need for addition al future surgery. She knew there as well was the risk of pseudoarthrosis, screw and hardware failur e and malposition. She knew there was risk of continued symptoms and worsening low back pain and/or leg pain. Surgery does not always work and she knew these were risks, but we had good expectation th at she would do well. She wanted to proceed. She knew there was a slight risk of infection. DESCRIPTION OF PROCEDURE: Patient was taken to the operating room, placed in supine position. Gener al anesthesia was begun. She was flipped prone onto the David table. Care was taken to pad all po ints of contact. Her back was sterilely prepped and draped by the surgeon. She was prepped 4 separa te times and each was allowed to sit for several minutes until completely dry. She was then draped a nd we made a midline incision that measured about 7 cm in length. The subcutaneous tissue was dissec doreen using Bovie cautery down through the fascia and a subperiosteal dissection was made down the infe rior lamina of L2. The complete lamina of L3, 4, 5 and S1 was exposed. A self-retaining retractor w as placed. A localizing x-ray was taken. We denuded the bilateral facet joints at L3-4 4-5, 5-1. T here was remarkable left-sided facet arthropathy at L5-S1 with floating bone sitting outside of the j oint itself and a large exophytic synovium that was emanating from the joint. We found similar appea terese on the right at L3-4 and similar appearance bilaterally at L4-5, but from direct visual inspect ion, the left L5-S1 joint actually appeared the most incompetent, although we knew the spondylolisthe sis was at L4-5. We attached the Stealth reference frame and using frameless steel stereotactic to p lace pedicle screws bilaterally at L3, L4, L5 and the sacrum. The sacral screws breached the ventral cortex. There was excellent bony purchase and good medial angulation of the screws, particularly at L5 and S1 and I was happy with the positioning of the hardware. An O-arm spin was made. We confirm ed all of the hardware positioning. It stimulated at acceptable levels. We took 100 mm rods, slight ly increased the lordosis from the left-sided adolfo. We maintained the factory specified lordosis on t he right-sided adolfo, placed these down over the screws, distracted on the right at L3-4, bilaterally a t L4-5 and on the left at L5-S1 and final tightened the cap screws according to company specification . We then removed all the soft tissue of the bone at L3, L4, L5 and the sacrum. We harvested the in ferior L3 spinous process for autologous grafting purposes. We harvested the L4 and L5 spinous proce ss for autologous grafting purposes. We then drilled a left hemilaminectomy of L5, a bilateral darron ectomy of L4 and a right hemilaminectomy of L3, preserving the rostral arch of L3. We harvested all this bone for autologous grafting purposes and we had a large amount of bone autograft. Under the mi croscope, we performed a left lateral recess decompression at L5-S1 and a complete left L5-S1 facetec demario decompressing the exiting L5 nerve root. There was spondylotic material and synovial fluid in [facility] neural foramen. This was all completely removed. We performed bilateral decompressions at L4-5, there was very severe stenosis at L4-5. We performed a right facetectomy at L4-5, and at L3-4 we per formed a right therese-laminotomy and lateral recess decompression as well as a right L3-4 complete face tectomy. Our intention was to approach the intervertebral space from the right at 3-4 and 4-5, and f rom the left at 5-1. Under the operating microscope, we went from the left side and removed the left L5-S1 disk in its entirety. We roughened the subchondral bone to create arthrodesis. We then did l ikewise at L4-5 and L3-4 from the right-hand side. We then incised the L3-4, 4-5,5-1 space and chose an 8 mm expandable device for L5-S1, and a 9 mm expandable cage for L3-4, L4-5. We chose the 28 mm length on those cages. We then packed them with bone morphogenic protein. A medium was used constit uting 8 mg of bone morphogenic protein. We placed 2 mg in each of the intervertebral spaces and used 2 mg posterolaterally. We put bone autograft and BMP into the intervertebral spaces followed by the devices and under fluoroscopic guidance we expanded each of the devices according to company specifi cation. We had excellent lumbar lordosis and good positioning of all the devices. I was happy with this. We then decorticated all the remaining posterolateral bone bilaterally, placed bone autograft and BMP posterolaterally bilaterally, placed a subfascial drain, and then closed the incision in mult iple layers using Vicryl sutures. There were no complications. Median and ulnar somatosensory-evoke d potentials were stable throughout surgery and there was no evidence of any nerve irritation during our surgery on the lower back. COMPLICATIONS: None. /[id number]/MODL
--- NOTE | 2017-07-29 01:54 | GPROG ---
[f rep st] PROGRESS NOTE POSTOPERATIVE PROGRESS NOTE SUBJECTIVE: Patient is awake, alert, oriented, in no acute distress. Patient with expected lower ba ck pain. OBJECTIVE: VITAL SIGNS: Afebrile. Vital signs stable. HEENT: Pupils equal, round, reactive to li ght. EOMs intact. NEUROLOGIC: Cranial nerves 2-12 grossly intact. Motor: Patient has 5/5 strengt h in all muscle groups of bilateral upper and lower extremities and equal. Incision is clean, dry, a nd intact. Dressing in place. ALEJANDRO in place. ASSESSMENT AND PLAN: The patient is a 66-year-old female with a status post transforaminal lumbar in terbody fusion L3-4, L4-5, L5-S1 for bilateral lower extremity pain with right worse than left. Sarita ent will be admitted to the floor. Orders are placed. Patient fit for a brace that should wear when ever out of bed. Nursing staff instructed to call if any problems or questions arise. /[id number]/MODL
[2017-07-29] MEDS: ACETAMINOPHEN 500 MG TAB PO SCH ×3 (04:28→21:10)
[2017-07-29] MEDS: ceFAZolin 2 GM/DEXTROSE 100 ML IV SCH (04:31)
[2017-07-29] MEDS: oxyCODONE IR 5 MG TAB PO PRN ×4 (04:38→19:13)
[2017-07-29] MEDS: GABAPENTIN 300 MG CAP PO SCH ×2 (04:59→14:30)
[2017-07-29 05:12] LABS: PLATELET COUNT 148 10^3/uL (150-400)
[2017-07-29] MEDS: NEBIVOLOL HCL 5 MG TAB PO SCH (08:15)
--- NOTE | 2017-07-29 08:16 | NEUSURGPN ---
Date of Surgery: 07/28/17 Post Op Day: 1 Assessment/Plan: Assessment: 66 yo female that is s/p TLIF L3-S1 for BLE pain. (RLE>LLE pain) Plan: -s/p TLIF L3-S1: pt states that she is better this am, she had some pain control issues last night that is better controlled this am -pt states legs feel better with regards to pain as well as the numbness -post op xrays pending today -ALEJANDRO in place-productive -PT/OT pending this am -brace when out of bed -will work on pain control today -pt seen by Dr Rolle as well -warning signs given -call with any questions or concerns Subjective: Awake and alert. NAD. Eating/drinking and voiding. No null/neck/chest/abd or gu complaints. No f/c/n/v/d. Objective: AAO x 3, PERRLA/EOMI no droop CN 2-12 grossly intact +lt touch 5/5 BUE/BLE = CDI ALEJANDRO in place Neuro Check Frequency: per routine Urinary Catheter in Place: No Catheter Insertion Date: 07/28/17 - Physician Discussed Patient with Dr.: Aquilino Patient Seen by : Aquilino Neurosurgery Physical Exam - Vitals, I&O, Labs I and O 07/28/17 07/29/17 07/30/17 05:59 05:59 05:59 Intake Total 4480 Output Total 3940 Balance 540 Weight 63.503 kg Intake: Oral (ml) 2230 IV Intake (ml) 2250 Output: Urine (ml) 3250 Catheter 3250 Estimated Blood Loss (ml) 450 ALEJANDRO Drain Output (ml) 240 Back David Kiser 240 Other: Intake Quantity Yes Sufficient Number of Voids Catheter 1 Vital Signs Temp Pulse Resp BP Pulse Ox 36.6 C 67 16 113/71 94 07/29/17 07:45 07/29/17 07:45 07/29/17 07:45 07/29/17 07:45 07/29/17 07:45 Laboratory Results 07/29/17 04:00 07/29/17 04:00 ICD10 Worksheet Patient Problems: Problems Problem Status Onset Osteoarthritis of knee Acute Osteoarthritis of right hip Acute
[2017-07-29] MEDS: CHOLECALCIFEROL VIT D3 2,000 UNITS TAB/CAP PO SCH (08:19)
[2017-07-29] MEDS: FAMOTIDINE 20 MG TAB PO SCH ×2 (08:20→20:07)
[2017-07-29] MEDS: SENNOSIDES/DOCUSATE SODIUM TAB PO SCH ×2 (08:21→20:07)
[2017-07-29] MEDS: cycloSPORINE 0.05% 30 DROPERETTE/BOX EACHEYE SCH (09:36)
[2017-07-29] MEDS: METHOCARBAMOL 750 MG TAB PO PRN (09:46)
--- NOTE | 2017-07-29 14:33 | ASMTCMCOM ---
CM Note CM Note Notes: Pt s/p planned TLIF, resides w spouse. OT rec home, PT rec home/outpatient. Anticipate pt will d/c when medically stable, no CM d/c needs identified at this time. CM available for changes/needs. Date Signed: 07/29/2017 02:32 PM Electronically Signed By:SACHI Pierce
[2017-07-29] MEDS: DIAZEPAM 5 MG TAB PO PRN (20:07)
[2017-07-29] MEDS: CYCLOSPORINE EACHEYE SCH (20:08)
[2017-07-29] MEDS: Tretinoin [Retin-A] 1 APP TP SCH (20:09)
[2017-07-30] MEDS: GABAPENTIN 300 MG CAP PO SCH ×4 (00:09→20:18)
[2017-07-30] MEDS: oxyCODONE IR 5 MG TAB PO PRN ×3 (01:16→20:23)
[2017-07-30] MEDS: ACETAMINOPHEN 500 MG TAB PO SCH ×3 (06:29→21:32)
[2017-07-30] MEDS: cycloSPORINE 0.05% 30 DROPERETTE/BOX EACHEYE SCH (08:10)
--- NOTE | 2017-07-30 08:15 | NEUSURGPN ---
Date of Surgery: 07/28/17 Post Op Day: 2 Assessment/Plan: Assessment: 66 yo female that is s/p TLIF L3-S1 for BLE pain. (RLE>LLE pain) pod#2 Plan: -patient has some difficulty with urinary retention yesterday, likely due to medications, improved now -pt states legs feel better with regards to pain as well as the numbness -post op xrays show stable hardware placement without evidence of complication -PT/OT -brace when out of bed -possible dc home later today if doing well -pt seen by Dr Rolle as well -call with any questions or concerns Subjective: doing better today than yesterday, right leg pain gone, working on incisional pain Objective: AAO x 3, PERRLA/EOMI no droop CN 2-12 grossly intact +lt touch 5/5 BUE/BLE = CDI Neuro Check Frequency: per routine Urinary Catheter in Place: No Catheter Insertion Date: 07/28/17 - Physician Discussed Patient with : Aquilino Patient Seen by : Aquilino Neurosurgery Physical Exam - Vitals, I&O, Labs I and O 07/29/17 07/30/17 07/31/17 05:59 05:59 05:59 Intake Total 4480 3900 Output Total 3940 1460 Balance 540 2440 Weight 63.503 kg Intake: Oral (ml) 2230 3900 IV Intake (ml) 2250 Output: Urine (ml) 3250 1100 Catheter 3250 Toilet 1100 Estimated Blood Loss (ml) 450 ALEJANDRO Drain Output (ml) 240 360 Back David Kiser 240 360 Other: Intake Quantity Yes Yes Sufficient Number of Voids Catheter 1 Toilet 5 Vital Signs Temp Pulse Resp BP Pulse Ox 36.7 C 64 16 102/58 L 97 07/30/17 07:32 07/30/17 07:32 07/30/17 07:32 07/30/17 07:32 07/30/17 07:00 Laboratory Results 07/29/17 04:00 07/29/17 04:00 ICD10 Worksheet Patient Problems: Problems Problem Status Onset Osteoarthritis of knee Acute Osteoarthritis of right hip Acute
[2017-07-30] MEDS: SENNOSIDES/DOCUSATE SODIUM TAB PO SCH ×2 (09:27→20:14)
[2017-07-30] MEDS: CHOLECALCIFEROL VIT D3 2,000 UNITS TAB/CAP PO SCH (09:28)
[2017-07-30] MEDS: FAMOTIDINE 20 MG TAB PO SCH ×2 (09:29→20:23)
[2017-07-30] MEDS ORDERED: NS 500 ML IV ONE (09:30)
[2017-07-30] MEDS: NEBIVOLOL HCL 5 MG TAB PO SCH (11:13)
[2017-07-30] MEDS: Tretinoin [Retin-A] 1 APP TP SCH (20:14)
[2017-07-30] MEDS: DIAZEPAM 5 MG TAB PO PRN (20:23)
[2017-07-30] MEDS: CYCLOSPORINE EACHEYE SCH (20:24)
[2017-07-31] MEDS: oxyCODONE IR 5 MG TAB PO PRN ×4 (02:25→20:30)
[2017-07-31] MEDS: METHOCARBAMOL 750 MG TAB PO PRN ×2 (02:25→20:29)
[2017-07-31] MEDS: ACETAMINOPHEN 500 MG TAB PO SCH ×4 (05:50→21:51)
[2017-07-31] MEDS: GABAPENTIN 300 MG CAP PO SCH ×3 (06:03→20:36)
[2017-07-31] MEDS: cycloSPORINE 0.05% 30 DROPERETTE/BOX EACHEYE SCH (08:45)
[2017-07-31] MEDS: FAMOTIDINE 20 MG TAB PO SCH ×2 (09:02→20:29)
[2017-07-31] MEDS: NEBIVOLOL HCL 5 MG TAB PO SCH ×2 (09:02→09:05)
[2017-07-31] MEDS: CHOLECALCIFEROL VIT D3 2,000 UNITS TAB/CAP PO SCH (09:02)
[2017-07-31] MEDS: ENOXAPARIN 40 MG/0.4 ML SYR SC SCH (09:02)
--- NOTE | 2017-07-31 09:15 | NEUSURGPN ---
Date of Surgery: 07/28/17 Post Op Day: 3 Assessment/Plan: Assessment: 66 yo female that is s/p TLIF L3-S1 for BLE pain. (RLE>LLE pain) POD #3 Plan: -patient has some difficulty with urinary retention yesterday, likely due to medications, improved now-voiding well -pt states legs feel better with regards to pain as well as the numbness -post op xrays show stable hardware placement without evidence of complication -PT/OT-CPM -pt with some issues with hypotension-better now -will watch for another day and plan for dc tomorrow after we prove that he BP is stable, she works with PT and after arranges home for her -brace when out of bed -d/w Dr Rolle as well -call with any questions or concerns Subjective: Awake and alert. NAD. Eating/drinking and voiding. No f/c/n/v/d. No null/neck/ chest/abd or gu complaints. Objective: AAO x 3, PERRLA/EOMI no droop CN 2-12 grossly intact +lt touch 5/5 BUE/BLE = CDI Neuro Check Frequency: per routine Urinary Catheter in Place: No Catheter Insertion Date: 07/28/17 - Physician Discussed Patient with : Aquilino Neurosurgery Physical Exam - Vitals, I&O, Labs I and O 07/30/17 07/31/17 08/01/17 05:59 05:59 05:59 Intake Total 3900 2500 500 Output Total 1460 5000 Balance 2440 -2500 500 Weight 63.503 kg Intake: Oral (ml) 3900 2000 500 IV Infused (ml) 500 Ns 500 ml @ As Directed 500 IV ONCE ONE Rx#: [id number] Output: Urine (ml) 1100 5000 Toilet 1100 5000 ALEJANDRO Drain Output (ml) 360 Back David Kiser 360 Other: Intake Quantity Yes Yes Sufficient Number of Voids Toilet 5 1 Number of Stools Toilet 1 Vital Signs Temp Pulse Resp BP Pulse Ox 36.6 C 65 14 110/60 94 07/31/17 08:00 07/31/17 09:05 07/31/17 08:00 07/31/17 09:05 07/31/17 08:00 Laboratory Results 07/30/17 09:40 07/29/17 04:00 ICD10 Worksheet Patient Problems: Problems Problem Status Onset Osteoarthritis of knee Acute Osteoarthritis of right hip Acute
[2017-07-31] MEDS: ESTRADIOL 42.5 GM CRTUBE VG SCH (11:14)
[2017-07-31] MEDS: SENNOSIDES/DOCUSATE SODIUM TAB PO SCH (11:15)
[2017-07-31] MEDS ORDERED: CARBOXYMETHYLCELLULOSE 1% 0.4 ML DROPERETTE EACHEYE PRN (11:28)
[2017-07-31] MEDS ORDERED: LOPERAMIDE HCL 2 MG CAP PO PRN (15:58)
[2017-07-31] MEDS ORDERED: LOPERAMIDE HCL 2 MG CAP PO ONE (16:00)
--- NOTE | 2017-07-31 17:06 | PDHOSCONS ---
Hospitalist Consult Hospitalist Consult: Date of consultation: 07/31/2017 Consulting provider: Jose Sevilla PAC with Dr. Rolle Reason for consultation and CC: Diarrhea Source: Patient provides history appears reliable. EMR reviewed and case discussed with Jose Sevilla. HPI - very pleasant 66-year-old female with past medical history significant for RA, Sjogren's, chronic back pain with radicular symptoms, gluten sensitivity , now POD # 3 s/p TLIF L3-S1 with complaints of 3 weeks of watery diarrhea. Patient notes that time she has a history of "a "leaky gut and has had issues with her bowel for many years. More acutely she reports that for the past 3 weeks she has had more watery diarrhea alternating with a very loose stool. She denies any melena or hematochezia. She has noted some abdominal distension and GI upset. She denies any sharper cramping type pain. She reports that her symptoms do improve with bowel movements. Patient does note some bloating. Her diarrhea does not appear to be associated with any dietary intake. She does have reported history of gluten sensitivity and avoids this in general. She has not changed made any changes to her diet her start utilizing any preservative versus her sugar substitutes. Patient does report that she takes probiotics normally on multiple supplements which previously had helped her bowel movements become more regular. She has held her supplements for the past 10 days prior preoperatively including her probiotic, tumor, high-dose vitamin- D and multivitamin. Patient did see her primary care provider prior to surgery of stool outpatient stool studies were found to be within normal limits and patient was recommended to utilize Imodium p.r.n.. Patient does report history of colonoscopy x3 last within the past 10 years which was reported to be normal. Patient denies any associated nausea vomiting. Patient does note yesterday that despite increasing her oral hydration she had some urinary retention. She does report some increasing back pain but is unsure if this is related to her postoperative site. No previous history of pyelo. Of note, patient is chronically on Actemra for treatment of her rheumatoid arthritis. She reports the last injection was approximately 4 weeks ago or a little longer. Patient denies any fevers, chills, sweats or weight loss. Review of systems: General no fevers/chills/sweats. Patient overall has been feeling quite well. Postoperatively., skin: No acute rashes or sores, ENT: Chronic dry mouth related to Sjogren's no nasal discharge, eyes: Patient wears glasses. She denies any acute changes in vision. She does report chronic dry eyes despite regular use of eyedrops, serum drops and wrist stasis, CV: Patient reports occasional palpitations related to PVCs no chest pain, respiratory: Patient denies any cough shortness of breath, GI: See HPI, : Urinary retention as noted above. Patient denies any dysuria hematuria does report some back pain, musculoskeletal: Postoperative back pain with improved resolution of radicular symptoms. Patient denies any other joint pain at this time, neuro: Patient denies any headache, no numbness or tingling. Remainder review of systems negative except as noted above. Allergies: Humira, Lunesta, hydroxyzine, Yael, Levaquin, Relafen, Rozerem, trazodone, Ambien, desmopressin, gluten PMHx: RA, Sjogren's, chronic low back pain, PVCs with palpitations, "a "leaky gut" with history of intermittent diarrhea PSHx: Colonoscopy x3 reported normal, left shoulder surgery, right TKA, right BENJAMIN, TLIF L3-S1 FHx: Father-skin cancer, mother-CAD, OA SHx: Patient is lives with her . She is employed. She does not smoke or utilize any illicit drugs. She drinks once a month or less frequently. Physical Exam: VS Selected Entries 07/31/17 07/31/17 09:02 15:05 Heart Rate 88 Respiratory 16 Rate O2 Sat (%) 90 L Temperature (C) 36.7 C Blood Pressure 121/59 H Blood Pressure 89/60 L [Sitting] Blood Pressure 91/66 L [Standing] Blood Pressure 104/69 [Supine] Mean Arterial 79 Pressure (MAP) Blood Pressure Left Source Upper Arm Temperature Oral Source Heart Rate Automatic Source General-NAD. Pleasant adult female is resting quietly in bed. Skin-patient with small hematoma left radial. Otherwise no apparent rashes or sores on exposed extremities. ENT-mucous membranes appear moist. No oropharyngeal erythema or exudates. Eyes-patient is wearing glasses. Pupils are with decreased reactivity light bilaterally but symmetric. No scleral icterus or conjunctival injection. Neck - supple. trachea midline CV - RRR. slightly distant heart sounds. no m/r/g. Resp - CTA-B decreased inspiratory effort. GI - + BS. soft. mildly distended abdomen. no rebound/guarding. - no suprapubic tenderness to palpation. No Byers in place. MSK - patient able to move her distal extremities while lying in bed. Decreased range of movement motion postoperatively. Neuro - nonfocal. Patient was examined extremities as noted above. Psych - AAOx4. Thought process content and questions are appropriate. Microbiology 07/31/17 12:15 Stool Gastrointestinal Tract Panel (PCR) - Final No Organism Detected Laboratory Tests 07/29/17 07/29/17 07/30/17 04:00 04:00 09:40 WBC 8.78 RBC 2.90 L Hgb 8.9 L 9.7 L Hct 25.5 L 27.4 L MCV 87.9 MCH 30.7 MCHC 34.9 RDW 14.3 Plt Count 148 L MPV 10.4 Neut % (Auto) 78.0 H Lymph % (Auto) 14.6 L Logan % (Auto) 7.1 Eos % (Auto) 0.0 L Baso % (Auto) 0.1 L Nucleat RBC Rel Count 0.0 Absolute Neuts (auto) 6.85 H Absolute Lymphs (auto) 1.28 Absolute Monos (auto) 0.62 Absolute Eos (auto) 0.00 L Absolute Basos (auto) 0.01 L Absolute Nucleated RBC 0.00 Immature Gran % 0.2 Immature Gran # 0.02 Sodium 134 L Potassium 4.6 Chloride 102 Carbon Dioxide 22 Anion Gap 10 BUN 11 Creatinine 0.8 Estimated GFR > 60 Glucose 114 H Calcium 8.8 Stool Concentration Stool Occult Bld Scrn Stool Ova & Parasites Parasite Trichrome Direct Microscop Exam 07/31/17 12:15 WBC RBC Hgb Hct MCV MCH MCHC RDW Plt Count MPV Neut % (Auto) Lymph % (Auto) Logan % (Auto) Eos % (Auto) Baso % (Auto) Nucleat RBC Rel Count Absolute Neuts (auto) Absolute Lymphs (auto) Absolute Monos (auto) Absolute Eos (auto) Absolute Basos (auto) Absolute Nucleated RBC Immature Gran % Immature Gran # Sodium Potassium Chloride Carbon Dioxide Anion Gap BUN Creatinine Estimated GFR Glucose Calcium Stool Concentration Pending Stool Occult Bld Scrn NEGATIVE Stool Ova & Parasites LIQUID BROWN STOOL Parasite Trichrome Pending Direct Microscop Exam NONE SEEN A/P: #diarrhea - subacute/chronic. ddx including IBS vs. microscopic colitis vs. "bacterial overgrowth in bowel" vs. medication/diet related (nebivolol, actemra ) vs. less likely infectious (O/P and fecal leuks pending). Lomotil ordered by primary team and agree to trial. Patient without evidence of systemic or active infectious process at this time. Previous history of normal colonoscopies but may require additional follow up with GI o/p if symptoms continue. will also check a UA given recent urinary retention. Add patient home probiotic which she reports previously helped. check LFTs in AM. #urinary retention - has resolved at this time since yesterday. check UA. likely related to medications/opiates/anesthesia. #acute postoperative pain - as per primary team. doing well with oxy ir #acute blood loss anemia post op monitoring as per primary team. #RA - last Actemra injection approximately 4 weeks ago. afebrile. await stool studies. #Sjogren's - supportive care and continue patient home medications. #PVCs/palpitations - holding beta loree at this time with episode of hypotension. bb also potentially can result in diarrhea but pt has been on this senior living. #FEN - tolerating PO hydration and gluten free diet well. #PPX - SCDs. lovenox as per primary. Thank you for this consultation we will follow along with you.
[2017-07-31] MEDS: CYCLOSPORINE EACHEYE SCH (20:39)
[2017-07-31] MEDS: Tretinoin [Retin-A] 1 APP TP SCH (20:41)
[2017-08-01] MEDS: DIAZEPAM 5 MG TAB PO PRN (03:19)
[2017-08-01 04:51] LABS: PLATELET COUNT 156 10^3/uL (150-400)
[2017-08-01] MEDS: ACETAMINOPHEN 500 MG TAB PO SCH ×2 (05:39→15:30)
[2017-08-01] MEDS: GABAPENTIN 300 MG CAP PO SCH (05:42)
[2017-08-01 07:36] VITALS: BP 120/62; PULSE 68; RESP 16; TEMP 97.9; O2SAT 92
--- NOTE | 2017-08-01 08:22 | NEUSURGPN ---
Date of Surgery: 07/28/17 Post Op Day: 4 Assessment/Plan: Assessment: 66 yo female that is s/p TLIF L3-S1 for BLE pain. (RLE>LLE pain) POD #4 Plan: -patient has some difficulty with urinary retention 2 days ago, likely due to medications, improved now-voiding well now -pt states legs feel better with regards to pain as well as the numbness -post op xrays show stable hardware placement without evidence of complication -PT/OT-CPM -pt with some issues with hypotension-better now-stable -pt with some diarrhea as well that was dramatic and IM consulted. Cultures pending -plan for dc later today once seen by IM and cleared from their standpoint -appreciate IM involvement -brace when out of bed -d/w Dr Rolle as well -call with any questions or concerns Subjective: Awake and alert. NAD. Eating/drinking voiding. Pt with continued but improved diarrhea. No null/neck/chest/abd or gu complaints. No f/c/n/v/d. Objective: AAO x 3, PERRLA/EOMI no droop CN 2-12 grossly intact +lt touch 5/5 BUE/BLE = CDI Neuro Check Frequency: per routine Urinary Catheter in Place: No Catheter Insertion Date: 07/28/17 - Physician Discussed Patient with : Aquilino Neurosurgery Physical Exam - Vitals, I&O, Labs I and O 07/31/17 08/01/17 08/02/17 05:59 05:59 05:59 Intake Total 2500 2500 Output Total 5000 1000 600 Balance -2500 1500 -600 Weight 63.503 kg Intake: Oral (ml) 2000 2500 IV Infused (ml) 500 Ns 500 ml @ As Directed 500 IV ONCE ONE Rx#: [id number] Output: Urine (ml) 5000 1000 600 Toilet 5000 1000 600 Other: Intake Quantity Yes Sufficient Number of Voids Toilet 1 5 Number of Stools Toilet 1 2 Microbiology 07/31/17 19:30 Fecal Leukocyte Stain - Final Stool 07/31/17 12:15 Gastrointestinal Tract Panel (PCR) - Final Stool No Organism Detected Vital Signs Temp Pulse Resp BP Pulse Ox 36.6 C 68 16 120/62 92 08/01/17 07:35 08/01/17 07:35 08/01/17 07:35 08/01/17 07:35 08/01/17 07:35 Laboratory Results 08/01/17 04:31 08/01/17 04:31 ICD10 Worksheet Patient Problems: Problems Problem Status Onset Osteoarthritis of knee Acute Osteoarthritis of right hip Acute
[2017-08-01] MEDS: ENOXAPARIN 40 MG/0.4 ML SYR SC SCH (08:28)
[2017-08-01] MEDS: oxyCODONE IR 5 MG TAB PO PRN ×2 (08:29→15:30)
[2017-08-01] MEDS: CHOLECALCIFEROL VIT D3 2,000 UNITS TAB/CAP PO SCH (08:29)
[2017-08-01] MEDS: FAMOTIDINE 20 MG TAB PO SCH (08:29)
[2017-08-01] MEDS: NEBIVOLOL HCL 5 MG TAB PO SCH (08:30)
[2017-08-01] MEDS: cycloSPORINE 0.05% 30 DROPERETTE/BOX EACHEYE SCH (08:31)
--- NOTE | 2017-08-01 12:06 | HOSPPROG ---
Hospitalist Progress Note Assessment/Plan: 66y female postop. First encounter, chart reviewed. #diarrhea - -subacute/chronic. -likely related to some anxiety -improved -stool studies negative -Add patient home probiotic which she reports previously helped -LFTs stable #urinary retention - -resolved at this time since yesterday -UA negative -likely related to medications/opiates/anesthesia. #acute postoperative pain - -as per primary team -doing well with oxy ir #acute blood loss anemia post op monitoring as per primary team. -stable #RA - -last Actemra injection approximately 4 weeks ago. afebrile #Sjogren's - -supportive care and continue patient home medications. #PVCs/palpitations - -stable #FEN - -tolerating PO hydration and gluten free diet well. #PPX - -SCDs. lovenox as per primary. #Dispo -ok to DC home Subjective: Feeling better. Pain controlled. Up walking. Objective: Vital Signs Temp Pulse Resp BP Pulse Ox 36.6 C 68 16 120/62 92 08/01/17 07:35 08/01/17 08:30 08/01/17 07:35 08/01/17 08:30 08/01/17 07:35 Microbiology 07/31/17 19:30 Fecal Leukocyte Stain - Final Stool 07/31/17 12:15 Gastrointestinal Tract Panel (PCR) - Final Stool No Organism Detected Laboratory Results 08/01/17 04:31 08/01/17 04:31 07/31/17 08/01/17 08/02/17 05:59 05:59 05:59 Intake Total 2500 2500 Output Total 5000 1000 600 Balance -2500 1500 -600 - Physical Exam Constitutional: no apparent distress, appears nourished, not in pain Eyes: PERRL, anicteric sclera, EOMI Ears, Nose, Mouth, Throat: moist mucous membranes, hearing normal, ears appear normal Cardiovascular: No JVD, No tachycardia, No edema Respiratory: no respiratory distress, no rales or rhonchi, reduced air movement Gastrointestinal: normoactive bowel sounds, No tenderness, No ascites, No guarding Skin: warm, normal color, No erythema Musculoskeletal: normal joint ROM, no joint effusions, generalized weakness Neurologic: AAOx3 Psychiatric: interacting appropriately, not encephalopathic, thought process linear, anxious ICD10 Worksheet Patient Problems: Problems Problem Status Onset Osteoarthritis of right hip Acute Osteoarthritis of knee Acute
--- NOTE | 2017-08-01 15:43 | ASMTLACE ---
LACE Length of stay for Answers: 4-6 days current admission Acuity / Level of Answers: Yes Care: Did the patient have an inpatient admission? # of Emergency department Answers: 0 visits in the last 6 months Score: 7 Date Signed: 08/01/2017 01:29 PM Electronically Signed By:Janice Calderón
--- NOTE | 2017-08-01 16:58 | ASDISCHSUM ---
Discharge Information Plan Status:Home with No Needs Medically Cleared to Leave:07/31/2017 Discharge Date:08/01/2017 04:20 PM CM D/C Disposition:Home, Routine, Self-Care ADT D/C Disposition:Home, Routine, Self-Care Projected Discharge Date:08/01/2017 12:00 AM Transportation at D/C:Family Discharge Delay Reason: Follow-Up Date:08/01/2017 12:00 AM Discharge Slot:2 - 12:01 pm - 18:00 pm Final Diagnosis:Planned TLIF L3-S1 Placement Information Patient Contact Information Contact Name:CAROL Relationship: Address:[address] City:[place] Alternate Phone: State/Zip Code:[place] [address] Email: Financial Information Financial Class: Primary Plan Desc:MEDICARE INPATIENT Primary Plan Number:[id number] Secondary Plan Desc:[employer]/M[employer] SUPPLEMENT Secondary Plan Number:[id number] Assessment Information [facility] CM Progress Note CM Note CM Note Notes: Pt s/p planned TLIF, resides w spouse. OT rec home, PT rec home/outpatient. Anticipate pt will d/c when medically stable, no CM d/c needs identified at this time. CM available for changes/needs. Date Signed: 07/29/2017 02:32 PM Electronically Signed By:SACHI Pierce Case Management Discharge Plan Note Case Management Discharge Discharge Order Complete? Answers: Yes Patient to Obtain Answers: via Family Medications Transportation Arranged Answers: Family/Friends Family Notified Answers: Yes Discharge Comments Notes: Patient admitted for planned TLIF. CM met with patient, states no needs and ok to discharge home with support from later today. IM signed and placed in chart. Patient to follow up as directed and Case Management available for further needs. CM discharge plan: Home independently LACE LACE Length of stay for Answers: 4-6 days current admission Acuity / Level of Answers: Yes Care: Did the patient have an inpatient admission? # of Emergency department Answers: 0 visits in the last 6 months Score: 7 Date Signed: 08/01/2017 01:29 PM Electronically Signed By:Janice Calderón Intervention Information Intervention Type:*IM-Signed Date of Service:08/01/2017 01:30 PM Patient Type:Inpatient Staff Member:Janice Calderón Hours: Discipline: Severity: Comment:
== END 2017-08-01 16:20 | disposition home or self-care (01) | DRG 460 ==
LOC: F3N 06:01
PROVIDERS: ADMIT Neurological Surgery; ATTEND Neurological Surgery
PROC: 0SG30AJ Fusion of Lumbosacral Joint with Interbody Fusion Device, Posterior Approach, Anterior Column, Open Approach (ICD-10-PCS; principal; 2017-07-28 07:30)
PROC: 0SC00ZZ Extirpation of Matter from Lumbar Vertebral Joint, Open Approach (ICD-10-PCS; principal; 2017-07-28 07:30)
PROC: 0SG10AJ Fusion of 2 or more Lumbar Vertebral Joints with Interbody Fusion Device, Posterior Approach, Anterior Column, Open Approach (ICD-10-PCS; principal; 2017-07-28 07:30)
PROC: 8E0WXBZ Computer Assisted Procedure of Trunk Region (ICD-10-PCS; principal; 2017-07-28 07:30)
PROC: 00NY0ZZ Release Lumbar Spinal Cord, Open Approach (ICD-10-PCS; principal; 2017-07-28 07:30)
PROC: 01NB0ZZ Release Lumbar Nerve, Open Approach (ICD-10-PCS; principal; 2017-07-28 07:30)
DX: M43.16 Spondylolisthesis, lumbar region (principal); D62 Acute posthemorrhagic anemia; R19.7 Diarrhea, unspecified; R33.0 Drug induced retention of urine; G89.18 Other acute postprocedural pain; T43.605A Adverse effect of unspecified psychostimulants, initial encounter; T41.45XA Adverse effect of unspecified anesthetic, initial encounter; M35.00 Sjogren syndrome, unspecified; M48.061 Spinal stenosis, lumbar region without neurogenic claudication; M41.86 Other forms of scoliosis, lumbar region; M06.9 Rheumatoid arthritis, unspecified; Z96.651 Presence of right artificial knee joint; Z96.641 Presence of right artificial hip joint
CPT/HCPCS: 97110-GP; 97116-GP; 97161-GP; 97165-GO; 97530-GP; C1713; G8978-GP-CJ; G8979-GP-CI; G8980-GP-CI; G8987-GO-CI; G8988-GO-CI; G8989-GO-CI; J0171; J0690; J1100; J1650; J2250; J2270; J2370; J2405; J2704; J2765; J3010; P9041

== ENCOUNTER → 2017-09-09 | Outpatient (CLI) | payer OTHER, MEDICARE | LOC: FIMAGING 14:37 | PROVIDERS: ATTEND Nurse Practitioner | DX: Z98.1 Arthrodesis status (principal) ==

== ENCOUNTER → 2017-10-05 | Outpatient (CLI) | payer OTHER, MEDICARE | LOC: FIMAGING 14:55 | PROVIDERS: ATTEND Internal Medicine | DX: Z12.31 Encounter for screening mammogram for malignant neoplasm of breast (principal) ==

== ENCOUNTER → 2017-10-25 | Outpatient (CLI) | payer OTHER, MEDICARE | LOC: BMCIMAGING 11:15 | PROVIDERS: ATTEND Neurological Surgery | DX: Z98.1 Arthrodesis status (principal) ==

== ENCOUNTER → 2017-10-27 | Outpatient (CLI) | payer OTHER, MEDICARE | LOC: FIMAGING 14:19 | PROVIDERS: ATTEND Internal Medicine Rheumatology | DX: Z13.820 Encounter for screening for osteoporosis (principal); M81.0 Age-related osteoporosis without current pathological fracture ==

== ENCOUNTER → 2017-11-25 | Outpatient (CLI) | payer OTHER, MEDICARE | LOC: BHFA 14:00 | PROVIDERS: ATTEND Internal Medicine Cardiovascular Disease | DX: I49.3 Ventricular premature depolarization (principal) ==

== ENCOUNTER → 2018-01-24 | Outpatient (CLI) | payer OTHER, MEDICARE | LOC: FIMAGING 11:18 | PROVIDERS: ATTEND Nurse Practitioner | DX: Z09 Encounter for follow-up examination after completed treatment for conditions other than malignant neoplasm (principal); Z98.1 Arthrodesis status ==

== ENCOUNTER 2018-02-19 14:53 | Emergency (ER) | payer OTHER, MEDICARE ==
[2018-02-19] MEDS ORDERED: NS 500 ML IV ONE (16:10)
[2018-02-19 16:16] LABS: PLATELET COUNT 189 10^3/uL (150-400)
[2018-02-19 16:51] VITALS: BP 133/70
--- NOTE | 2018-02-19 17:06 | EDPHY ---
H & P Time Seen by Provider: 02/19/18 15:48 HPI/ROS: HPI Low blood pressure. PVCs. 67-year-old female by private vehicle with her . 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 She received an infusion of a biologic every 5 weeks. 5 weeks ago she had an infusion of this medication after this infusion she noted that her blood pressure was unusually low in the 90s systolic and her heart rate was low in the 30s to 40s. She reports that she was treated with a low dose of Bystolic for her PVCs. However, she stopped taking this medication sometime ago. She reports that her sales and marketing intern is aware of these problems. She also apparently had a Holter monitor in August of this year and the data was read as unremarkable by her sales and marketing intern Dr. Gennaro Pena. She reports that she had another infusion of this biologic agent for her rheumatoid arthritis a few days ago and again since then she has had low blood pressures with systolic pressures in the 90s. She reports feeling intermittently fatigue but denies lightheadedness. No syncope. She has had no shortness of breath or chest pain. Denies fever. No focal loss of sensation or weakness. No other complaints. ROS: Constitutional: No fever, no chills. As above. Respiratory: No cough. No shortness of breath. Cardiac: No chest pain, no palpitations. Gastrointestinal: No abdominal pain, no vomiting, no diarrhea. Genitourinary: No hematuria. No dysuria or increased frequency with urination. Musculoskeletal: No back pain. No neck pain. No myalgias or arthralgias. Skin: No rashes. Neurological: No headache. No focal weakness or altered sensation. Past medical history: Rheumatoid arthritis, dry eyes, chronic pain, multiple orthopedic surgeries, insomnia, anxiety, PVCs, neuropathy, osteopenia. 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 Social history: Nonsmoker. No alcohol. Here with her . She states that she does drink green tea and was not aware that this had caffeine in it. Physical Exam: General Appearance: Alert, no distress. This patient is responding to questions appropriately and in full sentences. This patient appears well- hydrated and well-nourished. Eyes: Pupils equal and round no pallor or injection. No lid edema, erythema or injection. Respiratory: There are no retractions, lungs are clear to auscultation with good air movement bilaterally. Cardiovascular: Regular irregular rhythm. No murmur appreciated. Gastrointestinal: Abdomen is soft and nontender, no masses, bowel sounds normal. No focal tenderness at McBurney's point. No Batista sign. Neurological: Motor sensory function is grossly intact. Cranial nerves are normal. Gait is normal. Skin: Warm and dry, no rashes. Musculoskeletal: Neck is supple and nontender. Extremities are symmetrical. All joints range without pain or impingement. Psychiatric: No agitation. No depression. Database: EKG: EKG time is 3:42 p.m.: EKG shows PVCs in a ventricular bigeminal pattern with ventricular rate of 88. QS waves noted in V1 and V2. Interpreted by me. Imaging: Procedures: Emergency department course: Triage vital signs reviewed. Blood pressure is 130/63 my evaluation. Room air pulse oximetry 99%. panel monitor shows ventricular bigeminy with a rate average of 68. An IV was placed. She was placed on a bus driver/monitor. She was started on IV normal saline with 500 cc to be given over the next hour. 5:00 p.m., patient re-evaluated, resting comfortably at this time. Results of her emergency department workup discussed with her and her thoroughly. Her workup has been reassuring. She has a follow-up appointment scheduled with her sales and marketing intern on Wednesday. She feels comfortable going home now and I feel she is safe for discharge. Her TSH is still pending. I will follow up on the results of this. She has been instructed not to drink caffeinated beverages. Keep herself well hydrated and avoid strenuous activity until she has been cleared by her sales and marketing intern. Return to emergency department precautions have been reviewed with her. All of her questions have been answered. She was discharged in good condition with her who is driving. Differential Diagnosis: The differential diagnosis on this patient includes but is not limited to PVCs with bigeminy chronic, mild dehydration, anxiety. Acute coronary syndrome, anaphylactic reaction, severe dehydration, clinically significant anemia, pulmonary embolism, electrolyte abnormality, infection unlikely. This represents a partial list of diagnoses considered. These considerations are based on history, physical exam, past history, reassessment and diagnostic testing. Smoking Status: Never smoked Constitutional: Initial Vital Signs Temperature (C) 36.6 C 02/19/18 14:57 Heart Rate 63 02/19/18 14:57 Respiratory Rate 18 02/19/18 14:57 Blood Pressure 116/67 02/19/18 14:57 O2 Sat (%) 95 02/19/18 14:57 O2 Delivery Mode Room Air Allergies/Adverse Reactions: adalimumab [From Humira] Allergy (Severe, Verified 02/19/18 14:55) Rash eszopiclone [From Lunesta] Allergy (Severe, Verified 02/19/18 14:55) Rash hydroxyzine Allergy (Severe, Verified 02/19/18 14:55) Rash leflunomide [From Arava] Allergy (Severe, Verified 02/19/18 14:55) Diarrhea levofloxacin [From Levaquin] Allergy (Severe, Verified 02/19/18 14:55) Rash nabumetone [From Relafen] Allergy (Severe, Verified 02/19/18 14:55) Rash ramelteon [From Rozerem] Allergy (Severe, Verified 02/19/18 14:55) Rash trazodone Allergy (Severe, Verified 02/19/18 14:55) Other-Enter Comments zolpidem tartrate [From Ambien] Allergy (Severe, Verified 02/19/18 14:55) Rash desmopressin Allergy (Intermediate, Verified 02/19/18 14:55) Edema of Extremities gluten Allergy (Verified 02/15/17 12:27) Home Medications: Medication Instructions Recorded ACTEMRA 02/19/18 Estrace 02/19/18 Restasis Multidose 02/19/18 Tretinoin 02/19/18 Medical Decision Making - Data Points Laboratory Results: Laboratory Results 02/19/18 15:40 02/19/18 15:40 02/19/18 02/19/18 02/19/18 15:49 15:40 15:40 WBC Cancelled RBC Cancelled Hgb Cancelled Hct Cancelled MCV Cancelled MCH Cancelled MCHC Cancelled RDW Cancelled Plt Count Cancelled MPV Neut % (Auto) Lymph % (Auto) Randall % (Auto) Eos % (Auto) Baso % (Auto) Nucleat RBC Rel Count Absolute Neuts (auto) Absolute Lymphs (auto) Absolute Monos (auto) Absolute Eos (auto) Absolute Basos (auto) Absolute Nucleated RBC Immature Gran % Immature Gran # Sodium 135 mEq/L mEq/L (135-145) Potassium 4.5 mEq/L mEq/L (3.3-5.0) Chloride 106 mEq/L mEq/L (97-110) Carbon Dioxide 21 mEq/l L mEq/l (22-31) Anion Gap 8 mEq/L mEq/L (8-16) BUN 18 mg/dL mg/dL (7-23) Creatinine 0.7 mg/dL mg/dL (0.6-1.0) Estimated GFR > 60 Glucose 115 mg/dL H mg/dL (70-100) Calcium 9.4 mg/dL mg/dL (8.5-10.4) Total Bilirubin 0.5 mg/dL mg/dL (0.1-1.4) AST 33 IU/L IU/L (14-46) ALT 52 IU/L IU/L (9-52) Alkaline Phosphatase 108 IU/L IU/L (38-126) POC Troponin I 0.01 ng/mL ng/mL (0.00-0.08) Troponin I < 0.012 ng/mL ng/mL (0.000-0.034) Total Protein 6.2 g/dL L g/dL (6.3-8.2) Albumin 3.7 g/dL g/dL (3.5-5.0) 02/19/18 15:28 WBC 3.63 10^3/uL L 10^3/uL (3.80-9.50) RBC 4.23 10^6/uL 10^6/uL (4.18-5.33) Hgb 12.5 g/dL L g/dL (12.6-16.3) Hct 37.5 % L % (38.0-47.0) MCV 88.7 fL fL (81.5-99.8) MCH 29.6 pg pg (27.9-34.1) MCHC 33.3 g/dL g/dL (32.4-36.7) RDW 14.0 % % (11.5-15.2) Plt Count 189 10^3/uL 10^3/uL (150-400) MPV 11.5 fL fL (8.7-11.7) Neut % (Auto) 42.6 % % (39.3-74.2) Lymph % (Auto) 44.4 % % (15.0-45.0) Randall % (Auto) 9.1 % % (4.5-13.0) Eos % (Auto) 2.8 % % (0.6-7.6) Baso % (Auto) 1.1 % % (0.3-1.7) Nucleat RBC Rel Count 0.0 % % (0.0-0.2) Absolute Neuts (auto) 1.55 10^3/uL L 10^3/uL (1.70-6.50) Absolute Lymphs (auto) 1.61 10^3/uL 10^3/uL (1.00-3.00) Absolute Monos (auto) 0.33 10^3/uL 10^3/uL (0.30-0.80) Absolute Eos (auto) 0.10 10^3/uL 10^3/uL (0.03-0.40) Absolute Basos (auto) 0.04 10^3/uL 10^3/uL (0.02-0.10) Absolute Nucleated RBC 0.00 10^3/uL 10^3/uL (0-0.01) Immature Gran % 0.0 % % (0.0-1.1) Immature Gran # 0.00 10^3/uL 10^3/uL (0.00-0.10) Sodium Potassium Chloride Carbon Dioxide Anion Gap BUN Creatinine Estimated GFR Glucose Calcium Total Bilirubin AST ALT Alkaline Phosphatase POC Troponin I Troponin I Total Protein Albumin Medications Given: Discontinued Medications Sodium Chloride (Ns) 500 mls @ 1,000 mls/hr IV EDNOW ONE PRN Reason: Protocol Stop: 02/19/18 16:39 Last Admin: 02/19/18 16:16 Dose: 500 mls Point of Care Test Results: Chemistry 02/19/18 15:49 POC Troponin I 0.01 ng/mL ng/mL (0.00-0.08) Departure - Departure Disposition: Home, Routine, Self-Care Clinical Impression: Low blood pressure, Ventricular bigeminy Condition: Good Instructions: Hypotension (ED), Premature Ventricular Contractions (ED) Additional Instructions: Read and follow provided instructions. Follow-up with your sales and marketing intern on Wednesday as discussed. He will have access to our test results here. Your thyroid study is pending at the time of discharge and needs to be followed up by your sales and marketing intern or your primary care physician. Avoid caffeinated beverages. Keep yourself well hydrated. No strenuous activity until cleared by her sales and marketing intern. Return to the emergency department for worsening symptoms, chest pain, shortness of breath, lightheadedness or other serious concerns. Referrals: Elisa Cee MD [Primary Care Provider] - As per Instructions Roque Pena MD [Medical Doctor] - As per Instructions
--- NOTE | 2018-02-19 18:57 | CPEKG ---
Test Reason : OPEN Blood Pressure : / mmHG Vent. Rate : 088 BPM Atrial Rate : 038 BPM P-R Int : 178 ms QRS Dur : 073 ms QT Int : 293 ms P-R-T Axes : 085 084 249 degrees QTc Int : 355 ms Sinus rhythm Ventricular bigeminy Probable left atrial enlargement Borderline right axis deviation Anteroseptal infarct, age indeterminate Repol abnrm suggests ischemia, anterolateral Confirmed by Harpreet Kahn ([id number]) on 02/19/2018 6:56:35 PM Referred By: Confirmed By:Harpreet Kahn
== END 2018-02-19 17:25 | disposition home or self-care (01) ==
DX: I95.9 Hypotension, unspecified (principal); R00.8 Other abnormalities of heart beat
CPT/HCPCS: 84484-PO

== ENCOUNTER → 2018-06-26 | Outpatient (CLI) | payer OTHER, MEDICARE | LOC: FIMAGING 08:29 | PROVIDERS: ATTEND Internal Medicine | DX: R93.7 Abnormal findings on diagnostic imaging of other parts of musculoskeletal system (principal); Z98.1 Arthrodesis status ==

== ENCOUNTER → 2018-08-19 | Outpatient (CLI) | payer OTHER, MEDICARE | LOC: BMCIMAGING 15:11 | PROVIDERS: ATTEND Neurological Surgery | DX: M43.16 Spondylolisthesis, lumbar region (principal); M54.16 Radiculopathy, lumbar region; Z98.1 Arthrodesis status ==

== ENCOUNTER → 2018-10-12 | Outpatient (CLI) | payer OTHER, MEDICARE | LOC: FIMAGING 09:22 | PROVIDERS: ATTEND Internal Medicine | DX: Z12.31 Encounter for screening mammogram for malignant neoplasm of breast (principal) ==

== ENCOUNTER → 2018-10-28 | Outpatient (CLI) | payer OTHER, MEDICARE | LOC: FIMAGING 12:23 | PROVIDERS: ATTEND Internal Medicine | DX: Z13.820 Encounter for screening for osteoporosis (principal); M81.0 Age-related osteoporosis without current pathological fracture; M17.12 Unilateral primary osteoarthritis, left knee; M25.461 Effusion, right knee; M25.551 Pain in right hip; Z96.641 Presence of right artificial hip joint ==

== ENCOUNTER → 2018-12-08 | Outpatient (CLI) | payer OTHER, MEDICARE | LOC: FIMAGING 13:00 ==